=== PATIENT | male | born 1975 | race Caucasian/White ===

== ENCOUNTER 2020-03-29 07:41 | Emergency (ER) | payer MEDICARE ==
[~2020-03-29] VITALS: Ht 175.3 cm; Wt 81.0 kg
[2020-03-29] MEDS ORDERED: LIDOcaine 1% W/epiNEPHrine 1:200,000 10ml vial IJ ONE (07:50)
--- NOTE | 2020-03-29 07:57 | NUR ---
WOUND CULTURE OBTAINED.
[2020-03-29] MEDS ORDERED: CLIN-97 PO (08:10)
[2020-03-29] MEDS ORDERED: clindamycin phosphate 150mg/ml inj. IM ONE (08:15)
[2020-03-29] MEDS ORDERED: acetaminophen 325mg tablet PO ONE (08:15)
[2020-03-29 08:31] VITALS: BP 130/74
== END 2020-03-29 08:50 | disposition home or self-care (01) ==
LOC: ER 07:43
DX: L02.01 Cutaneous abscess of face (principal); F17.200 Nicotine dependence, unspecified, uncomplicated; F12.90 Cannabis use, unspecified, uncomplicated
CPT/HCPCS: 10060; 87070; 87077; 87186; 96372; 99283; J3490